=== PATIENT | male | born 1980 | race Caucasian/White ===

== ENCOUNTER 2022-07-31 01:50 | Emergency (ER) | payer OTHER, SELFPAY ==
[2022-07-31] MEDS ORDERED: Boostrix 0.5 ML (Tdap) VIAL (>/=7 yrs of age) ONE (02:07)
[2022-07-31] MEDS ORDERED: Lidocaine 1% PF 5 ML VIAL ONE ×2 (04:44→05:37)
[2022-07-31] MEDS ORDERED: fentaNYL 50 mcg/mL 1 mL Vial ONE ×2 (07:41→09:59)
[2022-07-31] MEDS ORDERED: Ketamine In 0.9 % NaCl 50 MG/5 ML SYRINGE ONE ×2 (07:42→10:37)
[2022-07-31] MEDS ORDERED: Ketorolac Tromethamine 30 MG/ML VIAL ONE (10:08)
== END 2022-07-31 12:38 | disposition home or self-care (01) ==
LOC: ERS 01:50
DX: S82.892A Other fracture of left lower leg, initial encounter for closed fracture (principal); S02.2XXB Fracture of nasal bones, initial encounter for open fracture; S06.9XAA Unspecified intracranial injury with loss of consciousness status unknown, initial encounter; I10 Essential (primary) hypertension; X99.0XXA Assault by sharp glass, initial encounter; Z23 Encounter for immunization; Z79.899 Other long term (current) drug therapy
CPT/HCPCS: 12016; 27840; 70450; 70486; 90471; 90715; 94760; 96374; 96375; 99152; J1885; J3010; J3490